=== PATIENT | female | born 1990 | race Caucasian/White ===

== ENCOUNTER 2023-10-07 18:27 | Emergency (ER) | payer BC, SELFPAY ==
[2023-10-07 18:30] VITALS: BP 152/95
[2023-10-07 19:14] VITALS: BMI 41.6
[2023-10-07 19:16] VITALS: BP 121/85
[2023-10-07 20:35] LABS: % Basophils 0.4 % (0-2); % Eosinophils 2.2 % (0-6); % Immature Granulocytes 0.4 % (0-0.5); % Lymphocytes 23.5 % (20.5-51.1); % Monocytes 7.3 % (1.7-9.3); % Neutrophils 66.2 % (42.2-75.2); Absolute Eosinophils 0.2 10^3/uL (0-0.7); Absolute Lymphocytes 2.4 10^3/uL (1.2-3.4); Absolute Monocytes 0.7 10^3/uL (0.1-0.6); Absolute Neutrophils 6.6 10^3/uL (1.4-6.5); Hematocrit 39.8 % (37.0-47.0); Hemoglobin 13.4 g/dL (12.0-16.0); Mean Corp Hgb Conc. 33.7 g/dL (33.0-37.0); Mean Corpuscular Hgb 26.2 pg (27.0-31.0); Mean Corpuscular Volume 77.9 fL (81.0-99.0); Mean Platelet Volume 10.3 fL (7.4-10.4); Nucleated Red Blood Cells % 0 %; Platelet Count 297 10^3/uL (130-400); Red Blood Cell Count 5.11 10^6/uL (4.20-5.40); Red Cell Dist. Width 12.9 % (11.5-14.5)
[2023-10-07 20:42] LABS: HCG, Serum Qualitative Screen Negative
[2023-10-07 20:46] LABS: ALT (SGPT) 24 U/L (0-35); AST (SGOT) 31 U/L (14-36); Albumin 4.2 g/dl (3.5-5.0); Alkaline Phosphatase 71 U/L (38-126); Blood Urea Nitrogen 9 mg/dl (7-17); Calcium 9.3 mg/dl (8.4-10.2); Carbon Dioxide 27 mmol/L (22-30); Chloride 106 mmol/L (98-107); Estimated Creatinine Clearance 113 ml/min; Glucose 83 mg/dl (70-99); Lipase 160 U/L (23-300); Sodium 138 mmol/L (135-145); Total Bilirubin 0.4 mg/dl (0.2-1.3); Total Protein 7.3 g/dl (6.3-8.2); eGFR > 60.00
--- NOTE | 2023-10-07 21:06 | ED.GENMED ---
History of Present Illness
General
Chief Complaint: Abdominal Pain
Source: patient
Exam Limitations: none
Time Seen by Provider: 10/07/23 19:14
Nursing documentation reviewed up to this point in time: agreed with
Travel History
Have you had any contact with someone who has COVID-19?: No
Do you have any symptoms of coronavirus? Fever > 100 degrees, chills, cough, shortness of breath, sore throat, loss of taste or smell, muscle aches, or headache?: No
History of Present Illness
History of Present Illness:
This is a 33-year-old obese woman who has longstanding history of anxiety maintained on alprazolam. She complains of at least 7-month history of somewhat chronic mid to lower abdominal pain, mild and persistent in nature with intermittent episodes
of severe, crampy pain. Abdominal pain is associated with nausea, intermittent episodes of nonbloody vomiting. She denies diarrhea or constipation. No dysuria no urgency nor hematuria, no chest pain nor back pain or flank pain. No fever nor
chills.
She has been evaluated at several different ED's as well as her primary care physician. Has been recommended to follow-up with a [employer] technical lead and thus far has not scheduled an appointment.
Most recent ED visit was length and all ER perhaps a month ago. She reports unremarkable laboratory studies. And most recently at urgent care[facility] days ago where she underwent EKG that was unremarkable, unremarkable CBC, BMP and
urinalysis. Referred to GI for further evaluation.
She does admit to significant stress at work and admits that increase stress seems to worsen her abdominal pain. Intermittent moderate to severe generalized mid abdominal pain throughout the day today accompanied with nausea without vomiting.
Menses have been normal, monthly with last menstrual period beginning 3 days ago. She does admit to somewhat increased pain with her menstrual period but has had ongoing pain throughout the the month as well.
She passed a normal soft bowel movement yesterday. No change in pain with bowel movements.
She complains of ongoing fatigue, intermittent dizziness but no chest pain or palpitations, no cough no shortness of breath. Mild generalized weakness but no falls nor syncope.
Patient states despite urgent care visits and ED visit she has had no previous imaging.
Her daily medications include: Alprazolam 1 mg 4 times daily, vitamins.
Past History
Past History
ED Past Medical History: Psychiatric (Anxiety)
ED Past Surgical History: None
Social History
Tobacco: Non-smoker
Alcohol: None
Drug: Marijuana (Rare THC use)
Personal: Single
Living: alone
Employment: Employed
Family History
Family History: Other (Brother with history of colitis.)
Phy Exam
Physical Exam
Physical Exam:
GENERAL: 26-year-old obese woman appears her stated age, bright and alert, pleasant, appears in no acute distress. Easily communicative.
EYE: anicteric
NECK: Supple, nontender, no meningismus, no significant adenopathy.
ENT: oral mucosa is moist. No rhinorrhea.
CARDIAC: Regular rate and rhythm. no murmur.
LUNGS: Clear breath sounds bilaterally, no acute respiratory distress, no wheezes/rales/rhonchi
ABDOMEN: Rotund, soft, nondistended, mild tenderness mid to lower abdomen with deep palpation only, no r/g, no cvat. normoactive BS.
NEUROLOGICAL: Alert and oriented x3, no focal neuro deficits. Gait is atkinson and steady.
SKIN: Warm and dry, normal color, skin intact. No rash.
MUSCULOSKELETAL: No C/C/E. peripheral pulses are full and equal b/l. No palpable tenderness.
PSYCH: Normal and appropriate interaction.
Course
Orders/Labs/Results
Orders:
Orders
10/07/23 20:08
CT Abd/pelvis W Iv Cont Urgent
Comment:
Reason For Exam: Gen mid to lower abd pain
10/07/23 20:09
Test Result ONCE
10/07/23 20:21
Complete Blood Count/With Diff Urgent
Comprehensive Metabolic Panel Urgent
HCG, Serum Qualitative Screen Urgent
Lipase Urgent
TSH Reflex To Free T4 Urgent
Abnormal Lab Results
10/07/23
20:21
MCV 77.9 L fL
(81.0-99.0)
MCH 26.2 L pg
(27.0-31.0)
Absolute Neuts (auto) 6.6 H 10^3/uL
(1.4-6.5)
Absolute Monos (auto) 0.7 H 10^3/uL
(0.1-0.6)
10/07/23 20:21
10/07/23 20:21
Vital Signs
Initial and Last Documented VS:
Initial Vital Signs
Temp Pulse Resp BP Pulse Ox
97.6 F 105 20 152/95 96
10/07/23 18:30 10/07/23 18:30 10/07/23 18:30 10/07/23 18:30 10/07/23 18:30
Last Documented Vital Signs
Temp Pulse Resp BP Pulse Ox
98.2 F 74 18 119/76 97
10/07/23 19:16 10/07/23 21:45 10/07/23 21:45 10/07/23 21:45 10/07/23 21:45
MDM/Problems Addressed
Differential Diagnosis Includes:
Patient presents with chronic, intermittent abdominal pain, ongoing for at least the past 6 months.
Associated with intermittent nausea, vomiting, generalized fatigue.
Unremarkable laboratory studies 1 week ago at [facility] including unremarkable urinalysis.
Concern for irritable bowel syndrome. As patient has had no diarrhea, colitis is less likely. No flank pain and abdominal pain is generalized/diffuse thus ureteric stone is unlikely as well.
No prior abdominal surgeries but must also consider potential for intermittent partial small bowel obstruction.
TURPENTINE DISTILLER etiologies such as ovarian cyst, endometriosis less likely as pain has been generalized mid to lower abdomen, chronic in nature.
Will check labs and plan for CT abdomen pelvis with IV contrast.
I do agree with previous providers that ultimately patient will require GI evaluation.
Chronic conditions affecting care: Psychiatric illness
*Radiology
Radiology exam reviewed: radiology read reviewed (CT of the abdomen pelvis is unremarkable save for mild stool present within the colon.)
*Pulse Oximetry
Patient hypoxic: no
*Critical Care Note
Total Time (30-74mins, 75-104mins- exclusive of procedures): Not Applicable
Update Note
Update Note:
10/07/2023 2213 PM
Labs are unremarkable.
CT abdomen pelvis shows mild stool throughout the colon but otherwise unremarkable.
I suspect an element of mild constipation and I highly suspect an element of irritable bowel syndrome.
Recommend high-fiber diet, staying well-hydrated on a daily basis. Recommend she trial an [id number] probiotic such as align daily and will add Bentyl for as needed abdominal pain.
As above, ultimately patient will need to follow-up with her PCP and recommend follow-up with GI as well.
ED Attending Note
-
Portions of this chart may have been created with voice recognition software.� Occasional wrong word or��sound alike� substitutions may have occurred due to the inherent limitations of voice recognition software.
Discharge Plan
Departure
Patient Disposition: Home (Routine Discharge)
Date of Disposition: 10/07/23
Time of Disposition: 22:08
Patient with high blood pressure during this ER visit?: No
Condition: Good
Discharge Problem:
acute on chronic abdominal pain, mild constipation, Irritable bowel syndrome (IBS)
Instructions: Constipation, Adult (DC), Irritable Bowel Syndrome (DC)
Prescriptions:
New
dicyclomine 20 mg tablet
20 mg PO QID PRN (Reason: abdominal pain) Qty: 30 0RF
Referrals:
Chelsie Crook MD [Active] - Call in 1-3 days for appt
Jhonatan Avitia MD [Family Provider] - Call in 1-3 days for appt
Interventions
Interventions:
*Risk Screen - Suicide Last Done: 10/07/23 19:14
*General Assessment Last Done: 10/07/23 19:14
*Neglect/Abuse Screening Last Done: 10/07/23 19:14
*ED COVID-19 Vaccine History Last Done: 10/07/23 19:14
DY-Nznhzg-Idtszfrebb Assessment Last Done: 10/07/23 19:16
Discharge Date and Time
Print Language: COLOMBIAN
[2023-10-07 21:18] LABS: TSH Reflex To Free T4 2.46 uIU/ml (0.47-4.68)
[2023-10-07 21:45] VITALS: BP 119/76
== END 2023-10-07 22:34 | disposition home or self-care (01) ==
LOC: EMR 18:27
PROVIDERS: EMERGENCY PHYSICIAN Emergency Medicine; FAMILY PHYSICIAN Family Medicine
DX: K58.9 Irritable bowel syndrome, unspecified (principal); G89.29 Other chronic pain; R10.9 Unspecified abdominal pain
CPT/HCPCS: 99285; 74177; 80053; 83690; 84443; 84703; 85025; Q9967